=== PATIENT | male | born 1960 | race Two or more races ===

== ENCOUNTER 2018-11-02 05:10 | Inpatient (IN) | payer OTHER ==
[~2018-11-02] VITALS: Ht 167.6 cm; Wt 72.6 kg
[2018-11-02] VITALS (11 sets, daily range): BP systolic 98–161; BP diastolic 65–102
[~2018-11-02 05:10] MED LIST: METFORMIN HCL1000 M1 ORAL
[2018-11-02] MEDS ORDERED: LR 1000ml 1,000 ML IVLG SCH (06:09)
[2018-11-02] MEDS ORDERED: LORazepam Inj 2mg/ml 1ml IV PRN (06:15)
[2018-11-02] MEDS ORDERED: Atropine Sulfate 0.4mg/ml inj IVP PRN (06:15)
[2018-11-02] MEDS ORDERED: oxyCODONE HCL/Acetaminophen 5/325mg ORAL PRN (06:15)
[2018-11-02] MEDS ORDERED: HYDROcodone/Acetamin 5/325 tab ORAL PRN ×2 (06:15→07:30)
[2018-11-02] MEDS ORDERED: Midazolam 2mg/2ml Inj IVP PRN (06:15)
[2018-11-02] MEDS ORDERED: HYDROcodone/Acetamin 7.5/325 tab ORAL PRN ×3 (06:15→07:30)
[2018-11-02] MEDS ORDERED: Ketorolac 30mg Inj IV PRN ×2 (06:15)
[2018-11-02] MEDS ORDERED: DiphenhydrAMINE 50mg/ml Inj IVP PRN (06:15)
[2018-11-02] MEDS ORDERED: fentaNYL 100 mcg/2 mL IV PRN (06:15)
[2018-11-02] MEDS ORDERED: Meperidine 50mg/ml Inj(FOR RIGORS ONLY) IVP PRN (06:15)
[2018-11-02] MEDS ORDERED: Labetalol 5mg/ml 20ml vial IV PRN (06:15)
[2018-11-02] MEDS ORDERED: Metoclopramide 10mg/2ml Inj IVP PRN ×2 (06:15→07:30)
--- NOTE | 2018-11-02 06:15 | Anethesia Preoperative Eval ---
Anesthesia Pre-op PMH/ROS General Date of Evaluation: Nov 02, 2018 Time of Evaluation: 07:06 Anesthesiologist: Jennifer ASA Score: ASA 2 Mallampati Score Class I : Soft palate, uvula, fauces, pillars visible Class II: Soft palate, uvula, fauces visible Class III: Soft palate, base of uvula visible Class IV: Only hard plate visible Mallampati Classification: Class II Surgeon: Dhaval Diagnosis: Neck Pain Surgical Procedure: ACDF C6-7, ADR C5-6 Anesthesia History: none Family History: no anesthesia problems Allergies: Coded Allergies: No Known Allergies (Unverified , 10/30/18) Medications: see eMAR Patient NPO?: Yes NPO Date: Nov 01, 2018 NPO Time: 1800 Past Medical History Endocrine: Reports: DM PSxH Narrative: Nose Sx, R Foot Sx Anesthesia Pre-op Phys. Exam Physician Exam Last Vital Signs Date Time Temp Pulse Resp B/P (MAP) Pulse Ox O2 Delivery O2 Flow Rate FiO2 11/02/18 05:48 Room Air Constitutional: NAD Neurologic: CN 2-12 intact Cardiovascular: RRR Respiratory: CTA Gastrointestinal: S/NT/ND Airway Exam Mallampati Score: Class II MO: full ROM: limited Teeth: missing, intact Anesthesia Pre-op A/P Risk Assessment & Plan Assessment: ASA 2 Plan: GA, SED, GlideScope Go Status Change Before Surgery: No Pre-Antibiotics Dru Grams Ancef IV Given Within 1 Hr of Incision: Yes Time Given: 07:31 Fabiano Rodriguez MD Nov 02, 2018 06:15
[2018-11-02] MEDS ORDERED: Acetaminophen (Non formulary) 100 ML IV ONE (06:30)
[2018-11-02] MEDS ORDERED: Zemuron 50mg/5ml Inj IV ONE (06:34)
[2018-11-02] MEDS ORDERED: Sodium Chloride 10ml vial INJ ONE (06:35)
[2018-11-02] MEDS ORDERED: Lidocaine 1% MPF 10mg/ml 5ml ONE (06:35)
[2018-11-02] MEDS ORDERED: fentaNYL 100 mcg/2 mL IV ONE ×2 (06:36→09:52)
[2018-11-02] MEDS ORDERED: Lidocaine 1% Plain 30 ml INJ ONE ×2 (06:36→08:55)
[2018-11-02] MEDS ORDERED: Thrombin 5000 units TOPIC ONE (06:40)
[2018-11-02] MEDS ORDERED: Gelfoam Size TOPIC ONE (06:40)
[2018-11-02] MEDS ORDERED: Vancomycin 1gm vial IVPB ONE (06:40)
[2018-11-02] MEDS ORDERED: Bacitracin 50000 Units Vial ONE (06:41)
--- NOTE | 2018-11-02 06:50 | Immediate Post-Op Evaluation ---
Immediate Post-Op Evalulation Immediate Post-Op Evalulation Procedure: ACDF C6-7, ADR C5-6 Date of Evaluation: Nov 02, 2018 Time of Evaluation: 10:30 IV Fluids: 1000 LR Blood Products: 0 Estimated Blood Loss: 50 Urinary Output: 0 Blood Pressure Systolic: 153 Blood Pressure Diastolic: 99 Pulse Rate: 67 Respiratory Rate: 16 O2 Sat by Pulse Oximetry: 100 Temperature (Fahrenheit): 97.1 Pain Score (1-10): 2 Nausea: No Vomiting: No Complications 0 Patient Status: awake, reacts, patent, extubated, none Hydration Status: adequate Dru Grams Ancef IV Given Within 1 Hr of Incision: Yes Time Given: 07:31 Fabiano Rodriguez MD Nov 02, 2018 06:50
[2018-11-02] MEDS ORDERED: Propofol 1,000mg/ 100ml btl IV ONE (07:00)
[2018-11-02] MEDS ORDERED: Sterile Water Irrig 1000ml IRRIG ONE (07:00)
[2018-11-02] MEDS ORDERED: Dexamethasone 4mg/ml vial ONE (07:00)
[2018-11-02] MEDS ORDERED: LR 1000ml ONE (07:00)
--- NOTE | 2018-11-02 07:20 | Pre-Procedure Note/Attestation ---
Pre-Procedure Note/Attestation Complete Prior to Procedure Planned Procedure: not applicable Procedure Narrative: C56 Artificial disc replacement and C67 Anterior cervical discectomy and fusion Indications for Procedure Pre-Operative Diagnosis: C45,56,67 hnp Attestation I attest that I discussed the nature of the procedure; its benefits; risks and complications; and alternatives (and the risks and benefits of such alternatives ), prior to the procedure, with the patient (or the patient's legal sales representative facility services). I attest that, if there was a reasonable possibility of needing a blood transfusion, the patient (or the patient's legal sales representative facility services) was given the [facility] standardized written summary, pursuant to the Félix Emison Blood Safety Act ([place] Health and Safety Code # 1645, as amended). I attest that I re-evaluated the patient just prior to the surgery and that there has been no change in the patient's H&P, except as documented below: Brien Dimas MD Nov 02, 2018 07:20
--- NOTE | 2018-11-02 07:21 | Brief Operative Note ---
Immediate Post Operative Note Operative Note Chief Complaint: neck pain and radiculopathy Pre-op Diagnosis: C45,56,67 hnp Procedure: C56 Artificial disc replacement and C67 Anterior cervical discectomy and fusion Post-op Diagnosis: same as pre-op Findings: consistent w/pre-op dx studies Surgeon: Judie Metaphysician: Bebeto Anesthesiologist: Jennifer Anesthesia: general Specimen: none Complications: none Condition: stable Fluids: ivf Estimated Blood Loss: minimal Drains: none Implant(s) used?: Yes - prodisc c sz 5, nuvasive interlock sz 6, screws 3x13 Brien Dimas MD Nov 02, 2018 07:21
[2018-11-02] MEDS ORDERED: NS Irrig 1000ml IRRIG ONE (07:30)
[2018-11-02] MEDS ORDERED: HYDROmorphone 1mg/ml Carpuject IVP PRN (07:30)
[2018-11-02] MEDS ORDERED: Morphine Sulfate 2mg/ml Inj(IV/IM USE ONLY) IV PRN (07:30)
[2018-11-02] MEDS ORDERED: Chloraseptic Spray 20mL Bottle ORAL PRN (07:30)
[2018-11-02] MEDS ORDERED: Milk of Magnesia 30ml Ud ORAL PRN (07:30)
[2018-11-02] MEDS ORDERED: Morphine Sulfate 4mg/ml Inj (IV USE ONLY) IV PRN (07:30)
[2018-11-02] MEDS ORDERED: Naloxone 0.4mg/ml Inj IVP PRN (07:30)
[2018-11-02] MEDS ORDERED: Neostigmine 1mg/ml 10ml Inj ONE (08:37)
[2018-11-02] MEDS ORDERED: Glycopyrrolate 0.2mg/ml 1ml Vial ONE (08:37)
--- NOTE | 2018-11-02 09:26 | NUR ---
CASE MANAGEMENT: INITIAL REVIEW 57 YO M PRESENTED TO HOSPITAL FOR SURGERY CC: PAIN PMHx: BACK PAIN SI:HERNIATED NUCLEUS PULPOSUS. PAIN RADICULOPATHY. T 97.8 HR 75 RR 20 B/P 121/79 SATS 97% ON RA NO LABS TODAY IS: LR @ 10 mL/HR CEFAZOLIN IV X1 PATIENT ADMITTED 11/02/2018 @ 0721 DCP: PATIENT TO BE DISCHARGED TO HOME ONCE MEDICALLY CLEARED. PLAN OF CARE: TO OR FOR ANTERIOR CERVICAL DISCECTOMY FUSION C6-7 W/ POSSIBLE ALLOGRAFT AND ARTIFICIAL DISC REPLACEMENT C5-6 Addendum: 11/02/18 at 0928 by Bronwyn Paul CM INTERQUAL MET
[2018-11-02] MEDS: Hydromorphone 0.5mg/0.5ml inj IVP PRN ×2 (10:52→11:17)
--- NOTE | 2018-11-02 11:15 | Diagnostic Imaging Report ---
INDICATION: Pain, intraoperative TECHNIQUE: Intraoperative imaging Fluoroscopy time: 59.4 seconds Total dose: 0.57841 mGym2 Total number of images: 4 COMPARISON: None FINDINGS: Intraoperative images demonstrate localizing tool projected at the anterior aspect of the C5-6 disc. Subsequent images demonstrate placement of a disc prosthesis at C5-6 and anterior fusion hardware at C6-7. IMPRESSION: Intraoperative imaging, as described
--- NOTE | 2018-11-02 11:40 | NUR ---
NURSE NOTES: Pt arrived from surgery awake, able to move feet has sensation to lower extremities. Pedal pulses palpable. Pt has sensation to upper extremities. Breathing with use of nc at 3 liters. IV site patent lactated ringers running. Incisional site closed no presence of bleeding, cold pack to area. Respiratory phoned for IS. Pt will continue to be monitored
[2018-11-02] MEDS: Morphine Sulfate 4mg/ml Inj (IV USE ONLY) IV PRN ×2 (12:25→20:33)
--- NOTE | 2018-11-02 13:00 | NUR ---
NURSE NOTES: v/s 1140 96.6 81 r 20 b/p 117/74 saturation 98% 1220 98 p 91 r20 b/p 120/72 1240 97.5 p91 r20 b/p 117/73 98 % on 3 nc
[2018-11-02] MEDS: NS w/KCl 20mEq 1000ml 1,000 ML IV SCH ×2 (13:32→23:39)
--- NOTE | 2018-11-02 13:45 | NUR ---
NURSE NOTES: Blood Sugar taken at 269 . Pt states he does not use insulin at home takes oral Glucophage 1000mg po q12 hours. Orders received by Charge Nurse, and carried out by charge nurse to place on sliding scale.
[2018-11-02] MEDS: ceFAZolin sod 1 GM in D5W 55 ML IV SCH ×2 (16:04→23:39)
--- NOTE | 2018-11-02 16:45 | Operative Note - Dictated ---
DATE OF OPERATION: 11/02/2018 SURGEON: Brien Dimas MD, Orthopedic Spine Surgeon. PREOPERATIVE DIAGNOSES: 1. Intractable neck pain. 2. Radiculopathy. 3. Herniation, C5-C6 and C6-C7. 4. Neural foraminal stenosis C5-C6 and C6-C7. 5. Stenosis. POSTOPERATIVE DIAGNOSES: 1. Intractable neck pain. 2. Radiculopathy. 3. Herniation, C5-C6 and C6-C7. 4. Neural foraminal stenosis C5-C6 and C6-C7. 5. Stenosis PROCEDURE PERFORMED: 1. Anterior cervical discectomy and artificial disc replacement of C5-C6, using a Synthes Prodisc C 5 height. 2. Anterior cervical discectomy and fusion of C6-C7 Nuvasive Interlock C size 6 PEEK cage and three 13 mm screws 1 mL of Osteocell allograft bone and local autograft. 3. Use of intraoperative microscope. 4. Motor evoked potential monitoring. 5. Somatosensory evoked potential monitoring. 6. Supervision and interpretation of fluoroscopy. COMPLICATIONS: None. ANESTHESIA: General. ESTIMATED BLOOD LOSS: Less than 100 mL. INDICATIONS FOR SURGERY: This patient is a 57-year-old male who has a history of diagnoses as listed above. As of result of this, the patient sustained intractable neck pain, radiculopathy, herniation, C5-C6 and C6-C7, neural foraminal stenosis C5-C6 and C6-C7, stenosis. We tried a course of conservative management but despite this course there was still a significant component of persistent, recalcitrant neck pain and arm pain. The MRI demonstrated significant neural foraminal compromise secondary to disc herniations at C5-C6 and C6-C7. We had a long discussion with Brien Odonnell regarding the risks and benefits of surgery. Our discussion included but was not limited to nonoperative management, chiropractic management, another epidural steroid injection as well definitive management in the form of surgery. We recommended an artificial disc replacement of cervical C5-C6 and anterior cervical discectomy and fusion of cervical C6-C7 as final definitive management. We reviewed the risks and benefits of surgery with the patient. Our discussion included a comprehensive review of the clinical issues and the nature of the clinical decision. We reviewed the alternatives, including doing nothing. The patient elected to proceed accordingly with an artificial disc replacement of cervical C5-C6 and anterior cervical discectomy and fusion of cervical C6-C7. We had a long discussion regarding the risks, alternatives and benefits of surgery. Our description of the risks included a discussion in person as well as a signed consent which detailed all pertinent risks from the procedure itself. Briefly, our discussion included but was not limited to infection, bleeding, pseudarthrosis, spinal cord injury, neurovascular injury, dural tear, CSF leak, neuropathy, paralysis, permanent weakness/drop foot/drop arm, paresthesias, blindness, palsy and weakness. The patient understood there may be a need for a revision surgery or additional procedures. Approach-related complications including dysphonia, dysphagia, blindness, permanent vocal cord and neural injury, hematoma, swallowing and breathing difficulty. Medical complications were reviewed including liver, kidney, shock, cardiopulmonary failure, anesthesia complications including , swelling, damage to the musculature, larynx/voice injury or loss, esophagus/throat, trachea, blood vessels and muscles/muscular sprain and lungs/pneumothorax during this surgical procedure; injury to deeper structures may be temporary or permanent. After this review of risks, the patient understood these and elected to proceed. A written and verbal consent was given. We discussed the pros and cons of all the alternatives. We discussed the uncertainties associated with the decision. Afterwards I assessed the patient's understanding and explored their preferences. All questions were answered and no guarantees were given. Medical clearance was obtained prior to surgery. INTRAOPERATIVE FINDINGS: A discrete disc herniation was found posterior to an obvious tear in the posterior longitudinal ligament at C5-C6 . At C5-C6, there was a large tear noted throughout the posterior longitudinal ligament, which was approximately 20 degrees cephalad to caudad. Through this tear, I noted migration at the posterior end of herniated nucleus pulposus. This was probed using Microsect 1-B curette and deemed to be causing pressure on the thecal sac neural foramina. This was causing a considerable amount of neural foraminal stenosis with significant encroachment on the neural foramina and spinal cord which was being impinged as a result of this pressure. Upon inspection of the interspace at cervical C6-C7. I noticed a rent in the posterior longitudinal ligament or PLL. At C6-C7, there was a tear noted in the posterior longitudinal ligament approximately 25 degrees cephalad to caudad. Through this tear, I noted a herniated nucleus pulposus. This was probed again with a Microsect 1-B and 2-B and this appeared to be encroaching more on the right versus left-sided neural foramina. Upon inspection of this tear once it was mobilized with Kerrison rongeurs there was a disc fragment and herniation causing encroachment on the neural foramina and spinal cord posterior to the PLL. This was resected as well which caused some noted relief on the underlying neural elements. The disk at both levels was mobile and soft in nature. It is not calcified or hardened. DESCRIPTION OF PROCEDURE: Under the benefit of general endotracheal anesthesia and with the assistance of the entire operative team, the patient was moved from the [facility] the operative table in the supine position. The head was secured and carefully positioned appropriately. Bilateral arms were secured with GelPads and foam and all bony prominences were padded. For the bilateral lower extremities SCD and CARLA hose were placed for DVT prophylaxis. A surgical timeout was called which corroborated our planned procedure of artificial disc replacement of an artificial disc replacement of cervical C5-C6 and anterior cervical discectomy and fusion of cervical C6-C7. Preoperative antibiotics were administered within 30 minutes of the incision for antibiotic prophylaxis. Using lateral fluoroscopic radiography, the operative levels were delineated. Next the wound was prepped and draped with Chlorhexidine and sterile drapes. An incision was based on lateral fluoroscopy and we centered our incision at the C5-C6 and C6-C7. Interspace and next using a standard Fernandez-Magaña anterior based approach the incision was taken down through the skin and subcutaneous tissues until the vertebral bodies and their corresponding disc spaces were visualized. A needle was placed into the interspace to confirm placement of the operative interspace and we performed the remainder of procedure under microscopic visualization. Next, using a bipolar and Bovie cautery to ensure meticulous hemostasis, the longus colli was mobilized bilaterally and retractors were placed deep to the longus colli bilaterally to address retraction. Next we turned our attention to the radical anterior discectomy. This was initially performed at C5-C6. First by using a 15 blade scalpel followed by narrow pituitaries and a Microsect 5-B curette was used to denude the endplate of all cartilaginous tissue. Next using a [email or web address] AM8 drillbit the vertebral endplates were denuded of all residual cartilage in a [id number] and layer by layer fashion, and ultimately the posterior uncinate joints bilaterally and posterior osteophytic lips and margins were carefully denuded until clear visualization of the posterior longitudinal ligament was possible. An endplate preparation was performed in the exact same fashion using an intervertebral bottom steep tender, sequential distraction was obtained throughout the disc space. We saw a tear/rent in the PLL. A discrete disc herniation was found posterior to an obvious tear in the posterior longitudinal ligament at C5-C6 . At C5-C6, there was a large tear noted throughout the posterior longitudinal ligament, which was approximately 20 degrees cephalad to caudad. Through this tear, I noted migration at the posterior end of herniated nucleus pulposus. This was probed using Microsect 1-B curette and deemed to be causing pressure on the thecal sac neural foramina. This was causing a considerable amount of neural foraminal stenosis with significant encroachment on the neural foramina and spinal cord which was being impinged as a result of this pressure. Again this was carefully mobilized and dissected using a Microsect 1-B curet until we visualized a discrete disc herniation with compression of the spinal cord as well as neural foramina which was right more than left sided. This neural foraminal compression was carefully resected using a Kerrison-1 and Kerrison-2 rongeurs until complete decompression of the spinal cord was visualized and complete decompression of the neural foramina and nerve root therein as well as the axilla and lateral margin of the nerve root was visualized and subsequently completely decompressed. The family was notified at one hour intervals throughout the procedure to provide for consistent updates. We next turned our attention towards trialing our implant within the disc space. We initially tried size 5 and this Prodisc Cervical spacer fit well in regards to depth and width. This implant was opened and prepared. Next under direct visualization I confirmed excellent fit in respect to the anterior and posterior vertebral bodies, the uncinate joints and in regards to toggle. Once satisfied with this placement on serial AP and lateral fluoroscopy I turned my attention towards cutting our ericka. These were cut in the bones using a reciprocating drill and afterwards all free fragments of bone were irrigated. Next FloSeal was placed into the interspace, then removed in its entirety and the implant was inserted using fluoroscopic guidance. Next the Synthes Prodisc C size 5 ADR was then carefully advanced and secured into the intervertebral space under direct visualization and with supervision of AP and lateral fluoroscopic views. I next turned my attention towards the radical anterior discectomy. This was then performed at Cervical C6-C7. First by using a 15 blade scalpel followed by narrow pituitaries and a micro-sect 5-B curette was used to denude the endplate of all cartilaginous tissue. Next using a [employer] AM8 drillbit the vertebral endplates were denuded of all cartilaginous tissue in a [id number] and layer by layer fashion, and ultimately the posterior uncinate joints bilaterally and posterior osteophytic lips and margins were carefully denuded until wide and thorough visualization of the posterior longitudinal ligament was possible. At this level the endplate preparation was performed in the exact same fashion using an intervertebral bottom steep tender, sequential distraction was obtained throughout the disc space. We saw a tear/rent in the PLL. Upon inspection of the interspace at cervical C6-C7. I noticed a rent in the posterior longitudinal ligament or PLL. At C6-C7, there was a tear noted in the posterior longitudinal ligament approximately 25 degrees cephalad to caudad. Through this tear, I noted a herniated nucleus pulposus. This was probed again with a Microsect 1-B and 2-B and this appeared to be encroaching more on the right versus left-sided neural foramina. Upon inspection of this tear once it was mobilized with Kerrison rongeurs there was a disc fragment and herniation causing encroachment on the neural foramina and spinal cord posterior to the PLL. This was resected as well which caused some noted relief on the underlying neural elements. Again this was carefully mobilized and dissected using a micro-set 1-B and 2b curette until we visualized an obvious disc herniation with compression of the spinal cord as well as neural foramina which was right more than left sided. This neural foraminal compression was carefully resected using a Kerrison-1 and Kerrison-2 rongeurs until complete decompression of the spinal cord was visualized and complete decompression of the neural foramina and nerve root therein as well as the axilla and lateral margin of the nerve root was visualized and subsequently completely decompressed. We next turned our attention towards trialing our implant within the disc space. We initially tried size 5 and afterwards size 6 trial from the NuISC8 interlock system at each level, which appeared to be appropriate under AP and lateral fluoroscopy as well as in terms of its height, depth, width and lack of toggle. The PEEK polyetheretherketone interbody cages were then both packed with allograft bone from Osteocel and local autograft bone matrix. Next these were then carefully advanced and secured into their intervertebral spaces under direct visualization and with supervision of AP and lateral fluoroscopic views. We next turned our attention towards plating. Plating was performed at each level with the [email or web address] interlock-C plating system. A total of three screws, size 13 mm in length were inserted and confirmed under AP and lateral fluoroscopy and confirmed to be in excellent position. After a finger sweep we confirmed removal of all sponges. The retractor was removed and we next turned our attention to meticulous hemostasis with FloSeal and bipolar cautery. After the sponge and needle count was again found to be correct with our second count, we next turned our attention to closure. The wound was again copiously irrigated with antibiotic impregnated saline Closure consisted of 4-0 clear nylon for the platysma, and 5-0 clear nylon for the superficial skin. Final skin closure and dressings consisted of Dermabond. Prior to final closure, a final radiograph was obtained which demonstrated the hardware is intact with excellent position throughout. The patient tolerated the procedure well. The patient was carefully extubated after the conclusion of surgery. We discussed the findings of the surgery with the family upon completion of the case. At this point the patient was transferred to the spine floor for further observation. Brien Dimas M.D. DR: DELANO JOB#: [id number] CC: [id number]
[2018-11-02] MEDS ORDERED: NovoLOG Insulin Flexpen SUBQ SCH (16:50)
[2018-11-02] MEDS: Dexamethasone 4mg/ml vial IVP SCH ×2 (17:45→23:39)
[2018-11-02] MEDS: NovoLOG Insulin Flexpen SUBQ SCH ×2 (17:49→20:34)
[2018-11-02] MEDS ORDERED: Docusate 100mg cap ORAL SCH (18:00)
[2018-11-02] MEDS ORDERED: metFORMIN 500mg tab ORAL SCH (18:00)
--- NOTE | 2018-11-02 18:45 | NUR ---
NURSE NOTES: Dr Franks here informed him of pt vomitus times one. Pt believes insulin made him vomit. Reglan provided. Continues to have all sensation to his feet. Able to follow directions by looking at finger without moving head. Denies dizzies. is at bedside. Skin remained clear after antibiotic administration no noted a/e . Current plan will be followed
--- NOTE | 2018-11-02 18:50 | Cardiology Progress Note ---
Assessment/Plan Assessment/Plan [id number] Glucophage iss diabetic diet anti emetic dvt ppx Objective Last 24 Hour Vital Signs Date Time Temp Pulse Resp B/P (MAP) Pulse Ox O2 Delivery O2 Flow Rate FiO2 11/02/18 16:35 100 Nasal Cannula 2.0 28 11/02/18 11:30 97.9 75 19 113/70 100 Nasal Cannula 3 11/02/18 11:17 72 18 111/71 100 Nasal Cannula 3 11/02/18 11:05 71 19 113/70 100 Nasal Cannula 3 11/02/18 10:52 70 21 127/79 100 Nasal Cannula 3 11/02/18 10:47 70 22 147/83 100 Nasal Cannula 3 11/02/18 10:37 161/102 11/02/18 10:37 72 22 161/102 100 Simple Mask 6 11/02/18 10:29 73 20 157/101 100 Simple Mask 6 11/02/18 10:24 73 20 157/100 100 Simple Mask 6 11/02/18 10:19 97.1 69 16 153/99 100 Simple Mask 6 11/02/18 10:15 67 16 100 11/02/18 06:24 97.8 75 20 121/79 (93) 97 11/02/18 05:48 Room Air Eduard Perales MD Nov 02, 2018 18:50
--- NOTE | 2018-11-02 19:57 | NUR ---
HAND-OFF: Report given to Kristina Robles RN.
--- NOTE | 2018-11-02 20:00 | NUR ---
NURSE NOTES: Patient received in bed, aaox4, at bedside. IVF infusing on left hand, no signs of infiltration. FC draining urine via gravity. Ant neck surgical site clean and dry. Pt c/o pain 09/13, will medicate as prescribed. Call light in reach. Will continue plan of care.
--- NOTE | 2018-11-02 21:00 | NUR ---
NURSE NOTES: Patient refused novolog sliding scale for BS of 228. patient stated he vomited after given insulin for dinner. Educated patient importance of medication. Patient stated he took metformin and will wait for its effect, continued to refuse insulin. Instructed patient to notify RN for s/s of hyperglycemia, verbalized understanding. Will monitor patient.
--- NOTE | 2018-11-02 21:45 | Consultation ---
DATE OF CONSULTATION: 11/02/2018 INTERNAL MEDICINE CONSULTATION CONSULTING PHYSICIAN: Eduard Perales M.D. REFERRING PHYSICIAN: Brien Dimas M.D. REASON FOR REFERRAL: Postoperative medical care. HISTORY OF PRESENT ILLNESS: This is a middle-aged gentleman, who has a history of herniated nucleus pulposus with radiculopathy underwent surgery by Dr. Dimas. I was asked to follow the patient recommendation for postoperative medical care. The patient was seen postoperatively. He does have pain of significant degree in the surgical site, otherwise he does not have any chest pain or shortness of breath. No PND. No orthopnea. No palpitation. No dizziness or lightheadedness. PAST MEDICAL HISTORY: Positive for diabetes. He has had a remote history of peptic ulcer disease. Denies any high blood pressure. No heart attack, cancer, stroke, hepatitis, tuberculosis, asthma, or emphysema. No ulcers, kidney problems, liver problems, thyroid problems, anemia, arthritis, HIV and AIDS, or blood clots of any kind. PAST SURGICAL HISTORY: Hand, elbow and foot surgery. SOCIAL HISTORY: He quit many years ago tobacco. He does not drink or use drugs. 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 REVIEW OF SYSTEMS: GASTROINTESTINAL: He has had some nausea and he vomited once after getting some injection. GENITOURINARY: He has had no difficulty urination. PULMONARY: Denies any coughing or wheezing. CONSTITUTIONAL: No fever, chills, or night sweats. NEUROLOGIC: He still has some numbness and tingling sensation in his right hand, which he has had previously as well. No blurred vision, double vision, or spinning sensations. PHYSICAL EXAMINATION: GENERAL: Shows to be a middle-aged gentleman, in no respiratory distress. NECK: Skin glue on his incision on the right anterior bilaterally. LUNGS: Clear to auscultation and percussion. CARDIAC: S1 is normal. S2 is normal. Regular rate and rhythm. No heaves, thrills, gallops, or rubs are noted. ABDOMEN: Soft, nontender. Positive bowel sounds. EXTREMITIES: There is no edema. Pneumatic compression stockings are in place. LABORATORY DATA: Laboratory values are none postoperatively. Preop laboratories from Dr. Mcarthur's office was reviewed. Blood sugar of 231, otherwise no other abnormalities on the labs; A1c, however, was 8.3. White count 6.1, hemoglobin 13.7, and platelet count 275,000. INR 0.9 and PTT of 28.1. ASSESSMENT AND PLAN: 1. Herniated nucleus pulposus with radiculopathy, now postop. 2. Diabetes mellitus. 3. Postoperative pain. 4. Nausea and vomiting induced secondary to narcotics. This patient was seen in internal medicine consultation. The patient is doing well. He has already started his diet. He has been started on his Glucophage already. I have placed insulin sliding scale for the patient with Accu-Chek coverage for sensitive side. DVT prophylaxis with the use of pneumatic compression stockings, incentive spirometry, and pain management as ordered by Dr. Dimas. The patient should be ambulating hopefully and will be ready to go home relatively soon. Eduard Perales M.D. DR: SAUL JOB#: [id number] CC:
[2018-11-03] VITALS: BP 113/67
[2018-11-03 04:00] VITALS: BP 127/73
[2018-11-03] MEDS: Dexamethasone 4mg/ml vial IVP SCH (05:56)
[2018-11-03] MEDS: NovoLOG Insulin Flexpen SUBQ SCH (05:57)
[2018-11-03] MEDS ORDERED: ceFAZolin sod 2 GM in D5W 110 ML IVPB ONE (07:00)
--- NOTE | 2018-11-03 07:10 | NUR ---
NURSE NOTES: Nurse report given by VALERIE Mckeon. Patient's awake and eating breakfast in bed, high guillaume. AO x 4, denies pain, no s/s of distress or SOB. IV is running fluid, no sign of redness or tenderness. Bed at lowest position, break engaged and call light within reach. Will continue to monitor.
--- NOTE | 2018-11-03 07:28 | NUR ---
HAND-OFF: Report given to Yin PADILLA.
[2018-11-03 08:00] VITALS: BP 126/68
[2018-11-03] MEDS: ceFAZolin sod 1 GM in D5W 55 ML IV SCH (08:03)
--- NOTE | 2018-11-03 08:45 | NUR ---
NURSE NOTES: D/C rice per MD ordered. Patient tolerated well. Rice tip intact, no bleed. Urine Output 200cc. Able to void within 20 minutes in the bathroom.
[2018-11-03 09:07] VITALS: BP 118/76
--- NOTE | 2018-11-03 09:07 | 48 Hour Post Anesthesia Eval ---
Post Anesthesia Evaluation Procedure: ACDF C6-7, ADR C5-6 Date of Evaluation: Nov 03, 2018 Time of Evaluation: 09:06 Blood Pressure Systolic: 118 0: 76 Pulse Rate: 72 Respiratory Rate: 20 Temperature (Fahrenheit): 97.6 O2 Sat by Pulse Oximetry: 98 Airway: patent Nausea: No Vomiting: No Pain Intensity: 3 Hydration Status: adequate Cardiopulmonary Status: stable Mental Status/LOC: patient returned to baseline Follow-up Care/Observations: n/a Post-Anesthesia Complications: none Follow-up care needed: ready to discharge Kvng Mortensen MD Nov 03, 2018 09:07
--- NOTE | 2018-11-03 09:30 | NUR ---
NURSE NOTES: Patient discharged per MD ordered. Patient's stable, AO x 4, denies pain, no s/s of distress or SOB, ambulates without assistance. Farheen, , is at bedside when notified that patient is being discharged home. stated she drives patient home by private vehicle. IV is disconnected, ID band removed. Patient went home with personal clothes. Patient's belonging list, discharge papers went over and signed by patient. Patient acknowledged that not to drive within 2 weeks and follow up with PCP. Patient's off the floor at 0930. Charge nurse Jono is notified.
--- NOTE | 2018-11-03 10:07 | NUR ---
P.T Note: P.T evaluation completed. Education provided to patient and re: spinal precautions as well as proper body mechanics to be applied to ADL/functional mobilities thru written handouts, demonstration and practice. Pt and able to verbalize understanding , patient presented good return demonstration. Pt is currently functioning independently and safely within the surgical guidelines. Skilled P.T service no longer needed at this time. DC P.T services. Thank you for this referral.
--- NOTE | 2018-11-05 23:31 | Discharge Summary ---
Discharge Summary Discharge Summary _ DATE OF ADMISSION: 11/02/2018 DATE OF DISCHARGE: 11/03/2018 DISCHARGED BY: Dr. Brien Dimas SURGEON: Dr. Brien Dimas GENERATING STATION MECHANIC: Dr. Eduard Perales BRIEF HOSPITAL COURSE: Patient is a 57-year-old male, who was admitted on 11/02/2018 and underwent C5- C6 artificial disc replacement and C6-C7 anterior cervical discectomy and fusion. He tolerated procedure well. Surgery was uneventful. Post-operatively , patient was admitted for post-op care. He was placed on SCDs for DVT prophylaxis and was encouraged use of incentive spirometer. Patient was given pain management. He was seen by PT. Diet was advanced. Incision was clean, dry and intact. Patient was ambulating well with good pain control and was tolerating diet. Patient was eventually cleared for discharge home. PREOPERATIVE DIAGNOSES: 1. Intractable neck pain. 2. Radiculopathy. 3. Herniation, C5-C6 and C6-C7. 4. Neural foraminal stenosis C5-C6 and C6-C7. 5. Stenosis. POSTOPERATIVE DIAGNOSES: 1. Intractable neck pain. 2. Radiculopathy. 3. Herniation, C5-C6 and C6-C7. 4. Neural foraminal stenosis C5-C6 and C6-C7. 5. Stenosis PROCEDURE PERFORMED: 1. Anterior cervical discectomy and artificial disc replacement of C5-C6, using a Synthes Prodisc C 5 height. 2. Anterior cervical discectomy and fusion of C6-C7 Nuvasive Interlock C size 6 PEEK cage and three 13 mm screws 1 mL of Osteocell allograft bone and local autograft. 3. Use of intraoperative microscope. 4. Motor evoked potential monitoring. 5. Somatosensory evoked potential monitoring. 6. Supervision and interpretation of fluoroscopy. (Refer to Operative Report) DISCHARGE DISPOSITION: Patient was discharged home. DISCHARGE MEDICATIONS: Refer to Medication Reconciliation Sheet. DISCHARGE INSTRUCTIONS: Post-op instructions given. Follow-up in a week. I have been assigned to complete a DC summary on this account, I was not involved with the patient's management.--MONE Mathews Jacqueline Robles NP Nov 05, 2018 23:31
== END 2018-11-03 09:30 | disposition home or self-care (01) | DRG 473 ==
LOC: SDSOVERFLO 05:10 → 3E 11:51
DX: M50.122 Cervical disc disorder at C5-C6 level with radiculopathy (principal); M48.02 Spinal stenosis, cervical region; E11.9 Type 2 diabetes mellitus without complications; G89.18 Other acute postprocedural pain; R11.2 Nausea with vomiting, unspecified; T40.605A Adverse effect of unspecified narcotics, initial encounter; Z79.84 Long term (current) use of oral hypoglycemic drugs; M79.2 Neuralgia and neuritis, unspecified; R03.0 Elevated blood-pressure reading, without diagnosis of hypertension
CPT/HCPCS: 36415; 72040; 76000; 82962; 86850; 86900; 86901; 87081; 94003; 94150; J1815; J2405; J2710; J2765

== ENCOUNTER 2020-05-08 14:49 | Inpatient (IN) | payer OTHER ==
[~2020-05-08] VITALS: Ht 167.6 cm; Wt 76.2 kg
[2020-05-16] VITALS (12 sets, daily range): BP systolic 124–156; BP diastolic 77–92
--- NOTE | 2020-05-16 06:36 | Anethesia Preoperative Eval ---
Anesthesia Pre-op PMH/ROS General Date of Evaluation: May 16, 2020 Time of Evaluation: 06:49 Anesthesiologist: Jennifer ASA Score: ASA 3 Mallampati Score Class I : Soft palate, uvula, fauces, pillars visible Class II: Soft palate, uvula, fauces visible Class III: Soft palate, base of uvula visible Class IV: Only hard plate visible Mallampati Classification: Class II Surgeon: Judie Diagnosis: Neck Pain Surgical Procedure: ACDF C5-6, ADR C4-5 Anesthesia History: none Family History: no anesthesia problems Allergies: Coded Allergies: No Known Allergies (Unverified , 10/30/18) Medications: see eMAR Patient NPO?: Yes Past Medical History Cardiovascular: Reports: HTN Endocrine: Reports: DM Anesthesia Pre-op Phys. Exam Physician Exam Last Vital Signs Date Time Temp Pulse Resp B/P (MAP) Pulse Ox O2 Delivery O2 Flow Rate FiO2 05/16/20 05:32 Room Air 05/16/20 05:31 96.6 74 18 128/77 (94) 98 Constitutional: NAD Neurologic: CN 2-12 intact Cardiovascular: RRR Respiratory: CTA Gastrointestinal: S/NT/ND Airway Exam Mallampati Score: Class II MO: full ROM: limited Teeth: missing, intact Anesthesia Pre-op A/P Risk Assessment & Plan Assessment: ASA 3 Plan: GA, SED, GlideScope Status Change Before Surgery: No Pre-Antibiotics Dru Grams Ancef IV Given Within 1 Hr of Incision: Yes Time Given: 07:36 Fabiano Rodriguez MD May 16, 2020 06:36
--- NOTE | 2020-05-16 06:37 | Immediate Post-Op Evaluation ---
Immediate Post-Op Evalulation Immediate Post-Op Evalulation Procedure: ACDF C5-6 Date of Evaluation: May 16, 2020 Time of Evaluation: 09:25 IV Fluids: 700 LR Blood Products: 0 Estimated Blood Loss: 50 Urinary Output: 300 Blood Pressure Systolic: 124 Blood Pressure Diastolic: 78 Pulse Rate: 74 Respiratory Rate: 16 O2 Sat by Pulse Oximetry: 99 Temperature (Fahrenheit): 97 Pain Score (1-10): 2 Nausea: No Vomiting: No Complications 0 Patient Status: awake, reacts, patent, extubated, none Hydration Status: adequate Dru Grams Ancef IV Given Within 1 Hr of Incision: Yes Time Given: 07:36 Fabiano Rodriguez MD May 16, 2020 06:37
--- NOTE | 2020-05-16 06:37 | 48 Hour Post Anesthesia Eval ---
Post Anesthesia Evaluation Procedure: ACDF C5-6 Date of Evaluation: May 16, 2020 Time of Evaluation: 11:34 Blood Pressure Systolic: 132 0: 67 Pulse Rate: 64 Respiratory Rate: 18 Temperature (Fahrenheit): 98 O2 Sat by Pulse Oximetry: 100 Airway: patent Nausea: No Vomiting: No Pain Intensity: 2 Hydration Status: adequate Cardiopulmonary Status: Stable Mental Status/LOC: patient returned to baseline Follow-up Care/Observations: 0 Post-Anesthesia Complications: 0 Follow-up care needed: N/A Fabiano Rodriguez MD May 16, 2020 06:37
[2020-05-16] MEDS ORDERED: Sodium Chloride 10ml vial INJ ONE (06:38)
[2020-05-16] MEDS ORDERED: Lidocaine 1% MPF 10mg/ml 5ml ONE (06:38)
[2020-05-16] MEDS ORDERED: Ketamine 500mg/10ml vial ONE (06:40)
[2020-05-16] MEDS ORDERED: Lidocaine 1% Plain 30 ml INJ ONE (06:41)
[2020-05-16] MEDS ORDERED: Hydromorphone 0.5mg/0.5ml inj IVP PRN ×2 (06:45)
[2020-05-16] MEDS ORDERED: oxyCODONE HCL/Acetaminophen 5/325mg ORAL PRN ×2 (06:45)
[2020-05-16] MEDS ORDERED: Meperidine 25mg/1ml Inj (FOR RIGORS ONLY) IV PRN ×2 (06:45)
[2020-05-16] MEDS ORDERED: LR 1000ml 1,000 ML IVLG SCH ×2 (06:45)
[2020-05-16] MEDS ORDERED: Atropine Sulfate 0.4mg/ml inj IVP PRN ×2 (06:45)
[2020-05-16] MEDS ORDERED: HYDROcodone/Acetamin 5/325 tab ORAL PRN ×3 (06:45→07:45)
[2020-05-16] MEDS ORDERED: Midazolam 2mg/2ml Inj IVP PRN ×2 (06:45)
[2020-05-16] MEDS ORDERED: Labetalol 5mg/ml 20ml vial IV PRN ×2 (06:45)
[2020-05-16] MEDS ORDERED: fentaNYL 100 mcg/2 mL IV PRN ×2 (06:45)
[2020-05-16] MEDS ORDERED: DiphenhydrAMINE 50mg/ml Inj IVP PRN ×2 (06:45)
[2020-05-16] MEDS ORDERED: HYDROcodone/Acetamin 7.5/325 tab ORAL PRN ×4 (06:45→07:45)
[2020-05-16] MEDS ORDERED: LORazepam Inj 2mg/ml 1ml IV PRN ×2 (06:45)
[2020-05-16] MEDS ORDERED: Acetaminophen (Non formulary) 100 ML IV ONE (06:45)
[2020-05-16] MEDS ORDERED: Ketorolac 30mg Inj IV PRN ×4 (06:45)
[2020-05-16] MEDS ORDERED: Metoclopramide 10mg/2ml Inj IVP PRN ×3 (06:45→07:45)
[2020-05-16] MEDS ORDERED: Thrombin 5000 units TOPIC ONE (06:51)
[2020-05-16] MEDS ORDERED: Gelfoam Size TOPIC ONE (06:51)
[2020-05-16] MEDS ORDERED: Bacitracin 50000 Units Vial ONE (06:51)
[2020-05-16] MEDS ORDERED: ceFAZolin sod 2 GM in NS 55 ML IVPB ONE (07:00)
[2020-05-16] MEDS ORDERED: Rocuronium Bromide 50mg/5ml Inj IV ONE (07:03)
--- NOTE | 2020-05-16 07:37 | Pre-Procedure Note/Attestation ---
Pre-Procedure Note/Attestation Complete Prior to Procedure Planned Procedure: not applicable Procedure Narrative: C45 anterior discectomy and fusion and C56 evaluation of arthroplasty and spur removal Indications for Procedure Pre-Operative Diagnosis: C45 herniation Attestation I attest that I discussed the nature of the procedure; its benefits; risks and complications; and alternatives (and the risks and benefits of such alternatives), prior to the procedure, with the patient (or the patient's legal sales representative trainee). I attest that, if there was a reasonable possibility of needing a blood transfusion, the patient (or the patient's legal sales representative trainee) was given the [facility] standardized written summary, pursuant to the [place] Blood Safety Act ([place] Health and Safety Code # 1645, as amended). I attest that I re-evaluated the patient just prior to the surgery and that there has been no change in the patient's H&P, except as documented below: Brien Dimas MD May 16, 2020 07:37
--- NOTE | 2020-05-16 07:38 | Brief Operative Note ---
Immediate Post Operative Note Operative Note Chief Complaint: neck pain and radiculpathy Pre-op Diagnosis: C45 herniation Procedure: C45 anterior discectomy and fusion and C56 evaluation of arthroplasty and spur removal Post-op Diagnosis: same as pre-op Findings: consistent w/pre-op dx studies Surgeon: Judie Local Superintendent: Bebeto Anesthesiologist: Jennifer Anesthesia: general Specimen: none Complications: none Condition: stable Fluids: IVF Estimated Blood Loss: minimal Drains: none Implant(s) used?: Yes - nuvasive interlock c sz 6 1cc osteocell 3 screws 14mm Brien Dimas MD May 16, 2020 07:38
[2020-05-16] MEDS ORDERED: Milk of Magnesia 30ml Ud ORAL PRN (07:45)
[2020-05-16] MEDS ORDERED: Morphine Sulfate 2mg/ml Inj(IV/IM USE ONLY) IV PRN (07:45)
[2020-05-16] MEDS ORDERED: Morphine Sulfate 4mg/ml Inj (IV USE ONLY) IV PRN ×2 (07:45)
[2020-05-16] MEDS ORDERED: NS w/KCl 20mEq 1000ml 1,000 ML IV SCH ×2 (07:45→12:00)
[2020-05-16] MEDS ORDERED: Chloraseptic Spray 20mL Bottle ORAL PRN (07:45)
[2020-05-16] MEDS ORDERED: HYDROmorphone 1mg/ml Carpuject IVP PRN (07:45)
[2020-05-16] MEDS ORDERED: Naloxone 0.4mg/ml Inj IVP PRN (07:45)
[2020-05-16] MEDS ORDERED: Phenylephrine 10mg/ml Vial ONE (07:48)
[2020-05-16] MEDS ORDERED: Docusate 100mg cap ORAL SCH ×2 (09:00→18:00)
--- NOTE | 2020-05-16 10:41 | NUR ---
NURSE NOTES: received patient A/A/Ox4, verbally responsive. no c/o pain/discomfort noted. anterior cervical surgical dermabond intact and ice pack inplaced. On O2 2L via NC. HOB elevated. VSS and taken. skin is intact. sensation and reflex present. notified spouse for location and update. PIV patent and intact. kept bed in the lowest position. siderails are upx3, bed alarm activated. will cont to monitor.
--- NOTE | 2020-05-16 10:41 | NUR ---
NURSE NOTES: spoke with RT Florence for IS.
--- NOTE | 2020-05-16 10:59 | NUR ---
NURSE NOTES: Called and spoke with , Farheen oh updates. personal belongings reviewed and noted. will cont to monitor.
--- NOTE | 2020-05-16 14:04 | Diagnostic Imaging Report ---
XRAY C Spine 2-3v CLINICAL HISTORY: Neck pain. COMPARISON: None FINDINGS: Fluoroscopy independent procedure performed for cervical fusion. 6.9 seconds of fluoroscopy time utilized by the ordering physician. Total cumulative dose is 0.43 mGy and 0.83495 Gy.cm2. Total of 3 spot images are obtained . IMPRESSION: FLUOROSCOPY GUIDED PROCEDURE.
--- NOTE | 2020-05-16 14:04 | NUR ---
NURSE NOTES: SEEN AND EVALUATED BY CARLIE LEE. TOELRATING AND NOW SITTING ON A CHAIR. NO APPARENT DISTRESS NOTED. WILL CONT TO MONITOR.
[2020-05-16] MEDS ORDERED: NORCO 10/3251 EA ORAL (14:40)
[2020-05-16] MEDS ORDERED: ceFAZolin sod 1 GM in D5W 55 ML IV SCH (15:00)
[2020-05-16] MEDS ORDERED: Tubing IV Secondary IV ONE (15:29)
--- NOTE | 2020-05-16 15:30 | NUR ---
NURSE NOTES: DISCHARGED HOME WITH INSTRUCTIONS AND RX GIVEN. REMOVED PIV. VERIFIED HOME ADDRESS. ACCOMPANIED BY SPOUSE. PERSONAL BELONGINGS REVIEWED AND NOTED. AMBULATES WITH STEADY GAIT. IN STABLE CONDITION.
--- NOTE | 2020-05-16 15:30 | NUR ---
P. T Note: P.T evaluation completed and tx performed consisted of ADl/functional mobility training with emphasis on spinal/movement precautions and proper body mechanics.Pt yeny.P.T tatiana/tx well. Anticipated DC to home with assisting. DME not needed. Pt cleared for DC to home from P.T stand point. to clear pt for DC. Addendum: 05/16/20 at 1531 by CARLIE LEE PT Amended: Links added.
--- NOTE | 2020-05-19 09:59 | Operative Note - Dictated ---
DATE OF OPERATION: 05/16/2020 SURGEON: Brien Dimas MD, Orthopaedic Spine Surgeon. PLY SPLICER: KRISTEN Vizcarra ANESTHESIOLOGIST: Fabiano Rodriguez MD PREOPERATIVE DIAGNOSES: 1. Intractable neck pain. 2. Radiculopathy. 3. Herniation, C4-C5. 4. Neural foraminal stenosis, C4-C5. 5. Stenosis. POSTOPERATIVE DIAGNOSES: 1. Intractable neck pain. 2. Radiculopathy. 3. Herniation, C4-C5. 4. Neural foraminal stenosis, C4-C5. 5. Stenosis. PROCEDURE PERFORMED: 1. Anterior cervical discectomy and fusion of C4-C5 using Nuvasive interlock C sz 5 and osteocell 1cc, 3 screws 14mm 2. Use of intraoperative microscope. 3. Motor evoked potential monitoring. 4. Somatosensory evoked potential monitoring. 5. Supervision and interpretation of fluoroscopy. 6. Evaluation under anesthesia of C56 arthroplasty COMPLICATIONS: None. ANESTHESIA: General. ESTIMATED BLOOD LOSS: Less than 100 mL. INDICATIONS FOR SURGERY: This patient is a 59-year-old male who has a history of intractable neck pain, radiculopathy, herniation of C4-C5, neural foraminal stenosis of C4-C5, and stenosis. We tried a course of conservative management, but despite this course, there was still a significant component of persistent, recalcitrant neck pain and arm pain. The MRI demonstrated significant neural foraminal compromise secondary to disc herniations at C4-C5. We had a long discussion with Brien regarding the risks and benefits of surgery. Our discussion included but was not limited to nonoperative management, chiropractic management, another epidural steroid injection as well as definitive management in the form of surgery. We recommended an anterior cervical discectomy and fusion of C4-C5 as final definitive management. We reviewed the risks and benefits of surgery with the patient. Our discussion included a comprehensive review of the clinical issues and the nature of the clinical decision. We reviewed the alternatives, including doing nothing. The patient elected to proceed accordingly with anterior cervical discectomy and fusion of C4-C5. We had a long discussion regarding the risks, alternatives, and benefits of surgery. Our description of the risks included a discussion in person as well as a signed consent, which detailed all pertinent risks from the procedure itself. Briefly, our discussion included but was not limited to infection, bleeding, pseudarthrosis, spinal cord injury, neurovascular injury, dural tear, CSF leak, neuropathy, paralysis, permanent weakness/drop foot/drop arm, paresthesias, blindness, palsy, and weakness. The patient understood there may be a need for a revision surgery or additional procedures. Approach-related complications including dysphonia, dysphagia, blindness, permanent vocal cord and neural injury, hematoma, swallowing and breathing difficulty. Medical complications were reviewed including liver, kidney, shock, cardiopulmonary failure, anesthesia complications including , swelling, damage to the musculature, larynx/voice injury or loss, esophagus/throat, trachea, blood vessels and muscles/muscular sprain and lungs/pneumothorax during this surgical procedure; injury to deeper structures may be temporary or permanent. After this review of risks, the patient understood these and elected to proceed. A written and verbal consent was given. We discussed the pros and cons of all the alternatives. We discussed the uncertainties associated with the decision. Afterwards, I assessed the patient's understanding and explored their preferences. All questions were answered and no guarantees were given. Medical clearance was obtained prior to surgery. INTRAOPERATIVE FINDINGS: C4-C5; there were no anterior spurs noted at C4-C5. After the disc was evaluated, it was found to be soft and spongy; not desiccated, dehydrated, or collapsed. There were no anterior spurs noted whatsoever. After removal of the disc, a tear was noted in the posterior longitudinal ligament on the right side. This tear appeared fresh and was probed with a Microsect curette, which gave rise to a large pedunculated disc herniation encroaching on the right-sided neural foramina at C4-C5. This was resected with a Kerrison 1 and Kerrison 2 rongeurs until complete and thorough foraminotomy was performed. The thecal sac and the neural elements were decompressed. C5-C6 was evaluated to rule out any presence of any spurring anterior to the arthroplasty. There was no evidence of any large spurs. The anterior disc was evaluated. There was residual fibrous tissue around the disc, which was resected and the bony surfaces were clogged with bony wax. DESCRIPTION OF PROCEDURE: Under the benefit of general endotracheal anesthesia and with the assistance of the entire operative team, the patient was moved from the rney onto the operative table in the supine position. The head was secured and carefully positioned appropriately. Bilateral arms were secured with Gel Pads and foam and all bony prominences were padded. For the bilateral lower extremities, SCD and CARLA hose were placed for DVT prophylaxis. A surgical timeout was called, which corroborated our planned procedure of anterior cervical discectomy and fusion of C4-C5. Preoperative antibiotics were administered within 30 minutes of the incision for antibiotic prophylaxis. Using lateral fluoroscopic radiography, the operative levels were delineated. Next, the wound was prepped and draped with chlorhexidine and sterile drapes. An incision was based on lateral fluoroscopy and we centered our incision at the C4-C5 interspace and next using a standard Fernandez-Magaña anterior-based approach, the incision was taken down through the skin and subcutaneous tissues until the vertebral bodies and their corresponding disc spaces were visualized. A needle was placed into the interspace to confirm placement of the operative interspace and we performed the remainder of procedure under microscopic visualization. Next, using bipolar and Bovie cautery to ensure meticulous hemostasis, the longus colli was mobilized bilaterally and retractors were placed deep to the longus colli bilaterally to address retraction. Next, we turned our attention to the radical anterior discectomy. This was performed at C4-C5 first by using a 15 blade scalpel followed by narrow pituitaries and a Microsect 5-B curette was used to denude the endplate of all cartilaginous tissue. Next, using a Easel Learn Nishant AM8 drill bit, the cartillagenous endplates were carefully denuded until visualization of the posterior longitudinal ligament was possible. An endplate preparation was performed in the exact same fashion using an intervertebral babbitter, sequential distraction was obtained throughout the disc space. We saw a tear/rent in the PLL and this was carefully mobilized and dissected using a Microsect 1-B curette until we visualized a broad-based disc herniation with compression of the spinal cord as well as neural foramina, which was right-sided. This neural foraminal compression was carefully resected using a Kerrison-1 and Kerrison-2 rongeurs until complete decompression of the spinal cord was visualized and complete decompression of the neural foramina and nerve root therein as well as the axilla and lateral margin of the nerve root was visualized and subsequently completely decompressed. The family was notified at one-hour intervals throughout the procedure to provide for consistent updates. We next turned our attention towards trialing our implant within the disc space. We initially tried size 5 and afterwards size6 trial from the nuvasivec interlock at C4-C5 level, which appeared to be appropriate under AP and lateral fluoroscopy as well as in terms of its height, depth, width, and lack of toggle. The PEEK (polyetheretherketone) interbody cages were then both packed with allograft bone from Osteocel and local autograft bone matrix. Next, these were then carefully advanced and secured into their intervertebral spaces under direct visualization and with supervision of AP and lateral fluoroscopic views. Final plating was performed with screws a total of 3 from the nuvasive interlock C system 14mm length After a finger sweep, we confirmed removal of all sponges. The retractor was removed and we next turned our attention to meticulous hemostasis with FloSeal and bipolar cautery. After the sponge and needle count was again found to be correct with our second count, we next turned our attention to closure. The wound was again copiously irrigated with antibiotic-impregnated saline. Closure consisted of 4-0 clear nylon for the platysma, and 6-0 clear nylon for the superficial skin. Final skin closure and dressings consisted of Dermabond. Prior to final closure, a final radiograph was obtained, which demonstrated the hardware was intact with excellent position throughout. The patient tolerated the procedure well. The patient was carefully extubated after the conclusion of surgery. We discussed the findings of the surgery with the family upon completion of the case. At this point, the patient was transferred to the spine floor for further observation. Brien Dimas M.D. DR: SONIDO JOB#: [id number] CC: [id number]
--- NOTE | 2020-05-19 10:28 | Discharge Summary ---
Discharge Summary Discharge Summary _ Date of admission: 05/16/2020 Date of discharge: 05/16/[address] Dimas History of Present Illness and Brief Hospital Course Mr. Yosi Odonnell is a 59-year-old male who presented to [facility] for a scheduled surgery. Patient had intractable neck pain, radiculopathy secondary t o herniation and neuroforaminal stenosis at C4-C5. Patient tried a course of conservative management but still had significant component of persistent, recalcitrant neck pain and arm pain. Patient underwent anterior cervical discectomy and fusion of C4-C5. Patient tolerated the procedure well and was transferred to the spine floor for further observation. Patient was cleared by physical therapist for discharge. Patient was medically stable and was discharged home on 05/16/2020. Consultants: None Discharge Condition Stable Discharge Activity As tolerated Discharge Diet Mechanical soft diet Final diagnoses Intractable neck pain. Radiculopathy. Herniation, C4-C5. Neural foraminal stenosis, C4-C5. Stenosis. s/p anterior cervical discectomy and fusion of C4-C5 I have been assigned to dictate discharge summary for this account. I was not involved in the patient's management Jan Calderon May 19, 2020 10:28
== END 2020-05-16 15:30 | disposition home or self-care (01) | DRG 473 ==
LOC: SDSOVERFLO 05-16 05:09 → 4E 05-16 10:22
DX: M50.121 Cervical disc disorder at C4-C5 level with radiculopathy (principal); M48.02 Spinal stenosis, cervical region; E11.9 Type 2 diabetes mellitus without complications
CPT/HCPCS: 36415; 72040; 76000; 82962; 86850; 86900; 86901; 87081; J2370; J2405